=== PATIENT | male | born 1960 | race African-American/Black ===

== ENCOUNTER 2017-06-07 14:04 | Emergency (ER) | payer MEDICAID ==
[~2017-06-07] VITALS: Ht 172.7 cm; Wt 120.2 kg
[~2017-06-07 14:04] MED LIST: CITRATE OF MAG300 ML PO; FLEXERIL10 M1 PO; LORTAB 5/500 TA1 TA1 PO; PREDNISONE PO
== END 2017-06-07 17:18 | disposition home or self-care (01) ==
LOC: CFTX 14:04 → CED 14:04 → CFTX 15:01
DX: M79.604 Pain in right leg (principal); G89.29 Other chronic pain; M51.9 Unspecified thoracic, thoracolumbar and lumbosacral intervertebral disc disorder; F17.210 Nicotine dependence, cigarettes, uncomplicated
CPT/HCPCS: 96372; 99283; J1885